=== PATIENT | male | born 1985 | race Caucasian/White ===

== ENCOUNTER 2023-07-02 15:30 | Emergency (ER) | payer OTHER, SELFPAY ==
[2023-07-02 15:43] VITALS: BP 142/100; PULSE 90; RESP 20; TEMP 36.7; O2SAT 100; BMI 20.8
--- NOTE | 2023-07-02 16:01 | ED.ABDPAIN1 ---
HPI - Abdominal Pain General Chief Complaint: Abdominal Pain Stated Complaint: Abdominal Pain, Blood in Stool Time Seen by Provider: 07/02/23 15:56 Source: patient Mode of arrival: walk-in Limitations: no limitations History of Present Illness HPI narrative: patient with several days of lower abdominal pain. He developed diarrhea yesterday and today saw blood in stool - but I have been wiping a lot the last 2 days . No fever, chills, flank pain or chest pain. No change in symptoms with eating or drinking. No skin rash. No prior history of similar. Related Data Previous Rx's Medication Instructions Recorded ciprofloxacin HCl 500 mg tablet 500 mg PO BID #14 tabs 07/02/23 (Cipro) ketorolac 10 mg tablet 10 mg PO Q8H PRN pain #14 tabs 07/02/23 metronidazole 500 mg tablet 500 mg PO Q8H 7 days #21 tabs 07/02/23 ondansetron 4 mg disintegrating 4 mg PO Q6H PRN nausea and 07/02/23 tablet vomiting #14 tabs Allergies Allergy/AdvReac Type Severity Reaction Status Date / Time iodine Allergy Severe Swelling Verified 07/02/23 15:49 of Lip/Tongue/Throat strawberries Allergy Intermediate Swelling Uncoded 07/02/23 15:49 of Lip/Tongue/Throat PFSH PFSH Social History Smoking status: Current every day smoker Exam Narrative Exam Narrative: Nurses notes and vital signs reviewed and patient is not hypoxic. afebrile General: Well-appearing and in no apparent distress. Skin: Warm, dry, no pallor noted. Head: Normocephalic, atraumatic. ENT: Oral mucosa is moist Cardiovascular: Regular Rate and Rhythm without murmur, gallop or rub. Respiratory: No accessory muscle use or respiratory distress. Lungs are clear to auscultation, no wheezing, rales or rhonchi Back: Left CVA tenderness Musculoskeletal: normal ROM GI: Abdomen is soft, non-distended. Normal bowel sounds. No masses appreciated. Bilateral lower abdominal tenderness to palpation. No rebound, guarding, or rigidity noted. Neurological: A&O x4. No cranial nerve dysfunction observed. No truncal ataxia. Moves all extremities. Sensation intact. Psychiatric: Cooperative and interactive. Normal mood and affect. Constitutional Vital Signs, click to edit/add: Last Vital Signs Temp 98.1 F 07/02/23 15:43 Pulse 90 07/02/23 15:43 Resp 20 07/02/23 15:43 BP 142/100 H 07/02/23 15:43 Pulse Ox 100 07/02/23 15:43 O2 Del Method Room Air 07/02/23 15:43 Course Vital Signs Vital signs: Vital Signs Temperature 98.1 F 07/02/23 15:43 Pulse Rate 90 07/02/23 15:43 Respiratory Rate 20 07/02/23 15:43 Blood Pressure 142/100 H 07/02/23 15:43 Pulse Oximetry 100 07/02/23 15:43 Oxygen Delivery Method Room Air 07/02/23 15:43 Temperature 98.1 F 07/02/23 15:43 Pulse Rate 90 07/02/23 15:43 Respiratory Rate 07/02/23 15:43 Blood Pressure 142/100 H 07/02/23 15:43 Pulse Oximetry 100 07/02/23 15:43 Oxygen Delivery Method Room Air 07/02/23 15:43 MDM - Abdominal Pain MDM Narrative Medical decision making narrative: Peripheral IV established blood drawn and sent for testing. He was ordered to undergo CT scanning of the abdomen pelvis. I also asked him to give us a stool sample so we could send for GI panel if it is diarrheal. Patient ordered to receive normal saline IV fluid, IV Zofran and IV morphine. Normal WBC. Normal CMP and Lipase. CT, per radiologist, shows proctosigmoiditis. Patient will be started on Cipro and Flagyl and discharged home with zofran and toradol prescriptions. He and I discussed results, diagnosis and plan for treatment. ED return if he worsens. He was given info for new PCPs in the area taking patients. Lab Data Attestation: I reviewed the patient's lab results. Labs: Lab Results 07/02/23 07/02/23 Range/Units 16:10 16:29 WBC 7.9 (4.0-11.0) 10^3/uL RBC 5.05 (4.70-6.10) 10^6/uL Hgb 15.5 (14.0-18.0) g/dL Hct 43.2 (42.0-54.0) % MCV 85.5 (80.0-94.0) fL MCH 30.7 (25.9-34.0) pg MCHC 35.9 H (29.9-35.2) g/dL RDW 11.9 (11.0-15.0) % Plt Count 288 (150-450) 10^3/uL MPV 9.5 (9.5-13.5) fL Neut % (Auto) 49.9 (43.0-75.0) % Lymph % (Auto) 41.4 (20.5-60.0) % [place] % (Auto) 6.2 (1.7-12.0) % Eos % (Auto) 1.6 (0.9-7.0) % Baso % (Auto) 0.8 (0.2-2.0) % Neut # (Auto) 3.9 (1.4-6.5) 10^3/uL Lymph # (Auto) 3.3 (1.2-3.8) 10^3/uL [place] # (Auto) 0.5 (0.3-0.8) 10^3/uL Eos # (Auto) 0.1 (0.0-0.7) 10^3/uL Baso # (Auto) 0.1 (0.0-0.1) 10^3/uL Abs Immat Gran (auto) 0.01 (0.00-0.03) 10^3/uL Imm/Tot Granulo (auto) 0.1 (0.0-0.5) % Sodium 138 (136-145) mmol/L Potassium 4.4 (3.5-5.1) mmol/L Chloride 103 (98-107) mmol/L Carbon Dioxide 30.8 (21.0-32.0) mmol/L Anion Gap 8.6 BUN 8.0 (7.0-18.0) mg/dL Creatinine 0.94 (0.70-1.30) mg/dL Est GFR ( Amer) >60 (>=60) Est GFR (Non-Af Amer) >60 (>=60) BUN/Creatinine Ratio 8.5 Glucose 98 (74-106) mg/dL Calcium 9.6 (8.5-10.1) mg/dL Total Bilirubin 0.6 (0.2-1.0) mg/dL AST 50 H (15-37) U/L ALT 128 H (16-63) U/L Alkaline Phosphatase 78 (46-116) U/L Total Protein 9.0 H (6.4-8.2) g/dL Albumin 4.5 (3.4-5.0) g/dL Globulin 4.5 g/dL Albumin/Globulin Ratio 1.0 Lipase 41.0 (16.0-77.0) U/L Imaging Data CT scan - abdomen: Radiologist's impression: ITS Impressions Abdomen/Pelvis CT 07/02/23 16:27 IMPRESSION: Suspect mild proctosigmoiditis. Bladder distention. Colonic diverticulosis without diverticulitis. Normal appendix. No renal/urinary tract calculi. Electronically authenticated by: MAZIN NIX Date: 07/02/2023 17:25 Discharge Plan Discharge Chief Complaint: Abdominal Pain Clinical Impression: Proctosigmoiditis Patient Disposition: Home, Self-Care Time of Disposition Decision: 17:48 Prescriptions / Home Meds: New metronidazole 500 mg tablet 500 mg PO Q8H 7 Days Qty: 21 0RF ciprofloxacin HCl [Cipro] 500 mg tablet 500 mg PO BID Qty: 14 0RF ondansetron 4 mg tablet,disintegrating 4 mg PO Q6H PRN (Reason: nausea and vomiting) Qty: 14 0RF ketorolac 10 mg tablet 10 mg PO Q8H PRN (Reason: pain) Qty: 14 0RF Instructions: Proctitis (ED), Colitis (ED) Stand Alone Forms: Portal Instructions Referrals: Physician,Non-Staff, MD [Primary Care Provider] - 1 week
[2023-07-02] MEDS: ONDANSETRON PF 4 MG/2 ML VIAL IV (16:20)
[2023-07-02] MEDS: 0.9 % SODIUM CHLORIDE 1,000 ML 999 ML IV (16:20)
[2023-07-02 16:23] LABS: Basophils Absolute Auto 0.1 10^3/uL (0.0-0.1); Basophils Percent Auto 0.8 % (0.2-2.0); Eosinophils Absolute Auto 0.1 10^3/uL (0.0-0.7); Eosinophils Percent Auto 1.6 % (0.9-7.0); Hematocrit 43.2 % (42.0-54.0); Hemoglobin 15.5 g/dL (14.0-18.0); Immature Granulocytes Abs Auto 0.01 10^3/uL (0.00-0.03); Immature Granulocytes Pct Auto 0.1 % (0.0-0.5); Lymphocytes Absolute Auto 3.3 10^3/uL (1.2-3.8); Lymphocytes Percent Auto 41.4 % (20.5-60.0); Mean Corpuscular HGB Conc 35.9 g/dL (29.9-35.2); Mean Corpuscular Hemoglobin 30.7 pg (25.9-34.0); Mean Corpuscular Volume 85.5 fL (80.0-94.0); Mean Platelet Volume 9.5 fL (9.5-13.5); Monocytes Absolute Auto 0.5 10^3/uL (0.3-0.8); Monocytes Percent Auto 6.2 % (1.7-12.0); Neutrophils Absolute Auto 3.9 10^3/uL (1.4-6.5); Neutrophils Percent Auto 49.9 % (43.0-75.0); Platelet Count 288 10^3/uL (150-450); Red Blood Count 5.05 10^6/uL (4.70-6.10); Red Cell Distribution Width 11.9 % (11.0-15.0); White Blood Count 7.9 10^3/uL (4.0-11.0)
--- NOTE | 2023-07-02 16:27 | CT_ITS ---
[place] [id number] Patient Name: MERISSA BAEZ MRN: [id number] date: 1985 Sex: M Assigned Patient Location: ER Current Patient Location: ER Accession/Order Number: [id number] Exam Date: 07/02/2023 16:57 Report Date: 07/02/2023 17:25 At the request of: EVA STAPLES Procedure: CT abdomen pelvis wo con EXAMINATION: CT abdomen pelvis wo con, 07/02/2023 1:57 PM PST HISTORY: lower abdominal pain COMPARISON: None. TECHNIQUE: CT scan of the abdomen and pelvis was performed without IV contrast. CT dose reduction technique was used, including Automated Exposure Control. FINDINGS: Lung: No significant finding. Liver: No significant finding. Gallbladder: No significant finding. Spleen: No significant finding. Pancreas: No significant finding. Adrenal glands: No significant finding. Kidneys, ureters and bladder: Bladder distention. No renal/urinary tract calculi. No hydronephrosis. Bowel: Colonic diverticulosis without diverticulitis. Normal appendix. No evidence of bowel obstruction. Mild thickening of the rectum and sigmoid. Peritoneum/retroperitoneum: No significant finding. Lymph nodes: No significant finding. Vessels: No significant finding. Body wall: No significant finding. Reproductive: No significant finding. Bones: No significant finding. CT/CT abdomen pelvis wo con IMPRESSION: Suspect mild proctosigmoiditis. Bladder distention. Colonic diverticulosis without diverticulitis. Normal appendix. No renal/urinary tract calculi. Electronically authenticated by: MAZIN NIX Date: 07/02/2023 17:25
[2023-07-02] MEDS: KETOROLAC TROMETHAMINE 30 MG/ML VIAL IVP (16:41)
[2023-07-02 16:49] LABS: Alanine Aminotransferase 128 U/L (16-63); Albumin Level 4.5 g/dL (3.4-5.0); Alkaline Phosphatase 78 U/L (46-116); Anion Gap 8.6; Aspartate Amino Transferase 50 U/L (15-37); BUN Creatinine Ratio 8.5; Bilirubin Total 0.6 mg/dL (0.2-1.0); Calcium 9.6 mg/dL (8.5-10.1); Carbon Dioxide 30.8 mmol/L (21.0-32.0); Chloride 103 mmol/L (98-107); Estimated GFR (African America >60 (>=60); Estimated GFR (Non-African Ame >60 (>=60); Globulin 4.5 g/dL; Glucose 98 mg/dL (74-106); Potassium 4.4 mmol/L (3.5-5.1); Sodium 138 mmol/L (136-145)
== END 2023-07-02 18:16 | disposition home or self-care (01) ==
PROVIDERS: Emergency Provider Emergency Medicine
DX: K63.89 Other specified diseases of intestine (principal); F17.210 Nicotine dependence, cigarettes, uncomplicated
CPT/HCPCS: 36415; 74176; 80053; 83690; 85025; 87507; 96374; 96375; 99285; J1885; J2405

== ENCOUNTER 2023-07-15 14:49 | Emergency (ER) | payer OTHER, SELFPAY ==
[2023-07-15 14:52] VITALS: BP 135/75; PULSE 85; RESP 20; TEMP 36.8; O2SAT 98; BMI 28.3
--- NOTE | 2023-07-15 15:08 | CT_ITS ---
The [address] [address] Patient Name: MERISSA BAEZ MRN: [id number] date: 1985 Sex: M Assigned Patient Location: ER Current Patient Location: ER Accession/Order Number: [id number] Exam Date: 07/15/2023 16:00 Report Date: 07/15/2023 16:20 At the request of: ADAMARIS ESTRADA Procedure: CT abdomen pelvis wo con EXAM: CT abdomen pelvis wo con HISTORY: Pain, recent proctitis COMPARISON: 07/02/2023 TECHNIQUE: Axial CT images were obtained of the abdomen and pelvis without intravenous contrast. Multiplanar reconstructions were performed. ABDOMEN/PELVIS FINDINGS: Lower Chest: Unremarkable. Liver: Normal nonenhanced appearance and contour. Biliary/Gallbladder: Unremarkable. Pancreas: Unremarkable. Spleen: Unremarkable. Adrenal Glands: Unremarkable. Kidneys: Unremarkable. Gastrointestinal/Peritoneum: No acute abnormality. Mild colonic diverticulosis is present. The appendix is unremarkable. No free air or free fluid. Vascular: Unremarkable. Lymph Nodes: No enlarged lymph nodes by CT size criteria. Pelvic Organs: Unremarkable. Bladder: The urinary bladder is moderately distended. Bones: No acute osseous abnormality. Soft tissues: Unremarkable. CT/CT abdomen pelvis wo con IMPRESSION: 1. No acute abnormality of the abdomen and pelvis. 2. Mild colonic diverticulosis without evidence of colonic inflammatory changes. 3. Moderately distended urinary bladder. Correlation with urine output may be clinically indicated. Electronically authenticated by: FILIBERTO EUGENE Date: 07/15/2023 16:20
--- NOTE | 2023-07-15 15:10 | ED_ITS ---
HPI - Abdominal Pain General Chief Complaint: Abdominal Pain Stated Complaint: ABD PAIN RETURN PATIENT BLOOD IN STOOL Time Seen by Provider: 07/15/23 14:58 Source: patient Mode of arrival: walk-in Limitations: no limitations History of Present Illness HPI narrative: 38-year-old male presents to the emergency department for abdominal pain. He states he had been diagnosed with proctitis a few weeks ago and he finished his antibiotics. He was getting better but now its gotten a bit worse. Sometimes when he has a bowel movement he passes some blood. He has not had a fever. He has been vomiting twice a day. The pain is moderate. Related Data Previous Rx's Medication Instructions Recorded ciprofloxacin HCl 500 mg tablet 500 mg PO BID #14 tabs 07/02/23 (Cipro) ketorolac 10 mg tablet 10 mg PO Q8H PRN pain #14 tabs 07/02/23 metronidazole 500 mg tablet 500 mg PO Q8H 7 days #21 tabs 07/02/23 ondansetron 4 mg disintegrating 4 mg PO Q6H PRN nausea and 07/02/23 tablet vomiting #14 tabs dicyclomine 10 mg capsule 10 mg PO QID PRN abdominal pain 07/15/23 #20 caps Allergies Allergy/AdvReac Type Severity Reaction Status Date / Time iodine Allergy Severe Swelling Verified 07/02/23 15:49 of Lip/Tongue/Throat strawberries Allergy Intermediate Swelling Uncoded 07/02/23 15:49 of Lip/Tongue/Throat Review of Systems ROS Narrative A ten point review of systems is negative except as noted above. PFSH PFSH Social History Smoking status: Heavy tobacco smoker Exam Narrative Exam Narrative: Nurses note and vital signs reviewed and patient is not hypoxic. General: The patient appears well and in no apparent distress. Patient is resting comfortably on cart. Skin: Warm, dry, no pallor noted. There is no rash noted. Head: Normocephalic, atraumatic Eye: Normal conjunctiva, no drainage Ears, Nose, Mouth, and Throat: oral mucosa is moist. Nares patent. Cardiovascular: Regular Rate and Rhythm Respiratory: Patient is in no distress, no accessory muscle use, lungs are clear to auscultation, no wheezing, rales or rhonchi Back: non-tender GI: Minimal diffuse tenderness without distention rebound guarding or mass Musculoskeletal: The patient has no evidence of calf tenderness, no pitting edema, symmetrical pulses noted bilaterally Neurological: A&O, normal speech Psychiatric: Cooperative Constitutional Vital Signs, click to edit/add: Last Vital Signs Temp 98.3 F 07/15/23 14:52 Pulse 85 07/15/23 14:52 Resp 20 07/15/23 14:52 BP 135/75 07/15/23 14:52 Pulse Ox 98 07/15/23 14:52 O2 Del Method Room Air 07/15/23 14:52 Course Vital Signs Vital signs: Vital Signs Temperature 98.3 F 07/15/23 14:52 Pulse Rate 85 07/15/23 14:52 Respiratory Rate 20 07/15/23 14:52 Blood Pressure 135/75 07/15/23 14:52 Pulse Oximetry 98 07/15/23 14:52 Oxygen Delivery Method Room Air 07/15/23 14:52 Temperature 98.3 F 07/15/23 14:52 Pulse Rate 85 07/15/23 14:52 Respiratory Rate 20 07/15/23 14:52 Blood Pressure 135/75 07/15/23 14:52 Pulse Oximetry 98 07/15/23 14:52 Oxygen Delivery Method Room Air 07/15/23 14:52 MDM - Abdominal Pain MDM Narrative Medical decision making narrative: His workup is negative including CAT scan. The proctosigmoiditis seems to have resolved. He does not require antibiotics. He was prescribed Bentyl and referred to PCP. Treatment diagnosis and follow-up were discussed with the oxana ent. He has had no difficulty with urination. Differential Diagnosis Differential diagnosis: Likely abdominal pain, constipation, diverticulitis, gastroenteritis and small bowel obstruction Lab Data Attestation: I reviewed the patient's lab results. Labs: Lab Results 07/15/23 07/15/23 Range/Units 15:20 15:28 WBC 8.3 (4.0-11.0) 10^3/uL RBC 4.54 L (4.70-6.10) 10^6/uL Hgb 14.0 (14.0-18.0) g/dL Hct 39.5 L (42.0-54.0) % MCV 87.0 (80.0-94.0) fL MCH 30.8 (25.9-34.0) pg MCHC 35.4 H (29.9-35.2) g/dL RDW 12.1 (11.0-15.0) % Plt Count 262 (150-450) 10^3/uL MPV 9.4 L (9.5-13.5) fL Neut % (Auto) 57.3 (43.0-75.0) % Lymph % (Auto) 33.4 (20.5-60.0) % [place] % (Auto) 7.4 (1.7-12.0) % Eos % (Auto) 1.2 (0.9-7.0) % Baso % (Auto) 0.6 (0.2-2.0) % Neut # (Auto) 4.7 (1.4-6.5) 10^3/uL Lymph # (Auto) 2.8 (1.2-3.8) 10^3/uL [place] # (Auto) 0.6 (0.3-0.8) 10^3/uL Eos # (Auto) 0.1 (0.0-0.7) 10^3/uL Baso # (Auto) 0.1 (0.0-0.1) 10^3/uL Abs Immat Gran (auto) 0.01 (0.00-0.03) 10^3/uL Imm/Tot Granulo (auto) 0.1 (0.0-0.5) % Sodium 137 (136-145) mmol/L Potassium 3.6 (3.5-5.1) mmol/L Chloride 103 (98-107) mmol/L Carbon Dioxide 27.9 (21.0-32.0) mmol/L Anion Gap 9.7 BUN 13.0 (7.0-18.0) mg/dL Creatinine 0.89 (0.70-1.30) mg/dL Est GFR ( Amer) >60 (>=60) Est GFR (Non-Af Amer) >60 (>=60) BUN/Creatinine Ratio 14.6 Glucose 117 H (74-106) mg/dL Calcium 8.7 (8.5-10.1) mg/dL Total Bilirubin 0.6 (0.2-1.0) mg/dL Direct Bilirubin 0.2 (0.0-0.2) mg/dL AST 148 H (15-37) U/L ALT 97 H (16-63) U/L Alkaline Phosphatase 75 (46-116) U/L Total Protein 7.7 (6.4-8.2) g/dL Albumin 3.9 (3.4-5.0) g/dL Globulin 3.8 g/dL Albumin/Globulin Ratio 1.0 Amylase 48 (25-115) U/L Lipase 50.0 (16.0-77.0) U/L Urine Color Lt. yellow (YELLOW) Urine Clarity Clear (CLEAR) Urine pH 6.5 (5.0-9.0) Ur Specific [place] <=1.005 A (1.005-1.025) Urine Protein Negative (NEG/TRACE) mg/dL Urine Glucose (UA) Negative (NEGATIVE) mg/dL Urine Ketones Negative (NEGATIVE) mg/dL Urine Occult Blood Negative (NEGATIVE) Urine Nitrite Negative (NEGATIVE) Urine Bilirubin Negative (NEGATIVE) Urine Urobilinogen 0.2 (0.2-1.0) EU/dL Ur Leukocyte Esterase Negative (NEGATIVE) Urine RBC 0-2 (0-2) #/HPF Urine WBC None seen (NONE SEEN) #/HPF Ur Squamous Epith Cells None seen (NONE/RARE) #/LPF Urine Crystals None seen (None Seen) #/HPF Urine Bacteria None seen (NONE SEEN) #/HPF Urine Casts None seen (NONE SEEN) #/LPF Urine Mucus None seen (NONE SEEN) Imaging Data CT scan - abdomen: Radiologist's impression: ITS Impressions Abdomen/Pelvis CT 07/15/23 15:08 IMPRESSION: 1. No acute abnormality of the abdomen and pelvis. 2. Mild colonic diverticulosis without evidence of colonic inflammatory changes. 3. Moderately distended urinary bladder. Correlation with urine output may be clinically indicated. Electronically authenticated by: FILIBERTO EUGENE Date: 07/15/2023 16:20 Discharge Plan Discharge Chief Complaint: Abdominal Pain Clinical Impression: Abdominal pain Patient Disposition: Home, Self-Care Time of Disposition Decision: 16:30 Condition: Good Mode of Transportation: Private Vehicle Prescriptions / Home Meds: New dicyclomine 10 mg capsule 10 mg PO QID PRN (Reason: abdominal pain) Qty: 20 0RF No Action metronidazole 500 mg tablet 500 mg PO Q8H 7 Days Qty: 21 0RF ciprofloxacin HCl [Cipro] 500 mg tablet 500 mg PO BID Qty: 14 0RF ondansetron 4 mg tablet,disintegrating 4 mg PO Q6H PRN (Reason: nausea and vomiting) Qty: 14 0RF ketorolac 10 mg tablet 10 mg PO Q8H PRN (Reason: pain) Qty: 14 0RF Instructions: Abdominal Pain (ED) Additional Instructions: Follow-up with PCP, list provided Stand Alone Forms: Portal Instructions Referrals: Physician,Non-Staff, MD [Primary Care Provider] - 1 week
--- OUTSIDE RECORDS SUMMARY | 2023-07-15 15:11 | XMS_ITS | CCD ---
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 Name Role Phone MANISH MORILLO Admitting Unavailable ILIA, MANISH Attending Unavailable ROSS, MANISH Consulting Unavailable REQUEST, NONE LISTED Primary Care Unavailable STRUS, RANDELL Consulting Unavailable STRUS, RANDELL Admitting Unavailable STRUS, RANDELL Attending Unavailable REINECK, CASSIE Mcnamara Admitting Unavailable REINECK, CASSIE Mcnamara Attending Unavailable ILIA, MANISH Primary Care Unavailable KIRFER, DORCAS Consulting Unavailable ILIA, MANISH Admitting Unavailable ROSS, MANISH Attending Unavailable ROSS, MANISH Consulting Unavailable ROSS, MANISH Primary Care Unavailable DIVYA, NELDA Admitting Unavailable DIVYA, NELDA Attending Unavailable DIVYA, NELDA Consulting Unavailable ROSS, MANISH Primary Care Unavailable HAY, EVA Admitting Unavailable HAY, EVA Attending Unavailable NILO CARRANZA Consulting Unavailable ROSS, MANISH Primary Care Unavailable HAY, EVA Admitting Unavailable HAY, EVA Attending Unavailable KIRFER, DORCAS Consulting Unavailable Allergies Allergy Classification Reported Allergen(s) Allergy Type Date of Onset Reaction(s) Facility (1 source) Iodine Drug Allergy 01-30-2014 [facility] Repository Problems Active Problems Problem Classification Problem Date Documented Date Episodic/Chronic Allergic reactions (1 source) Dermatitis, unspecified; Translations: [DERMATITIS UNSPECIFIED] Onset: 08-04-2019 Episodic Essential hypertension (1 source) Essential (primary) hypertension; Translations: [ESSENTIAL PRIMARY HYPERTENSION] Onset: 11-14-2018 Chronic External cause codes: Natural/environment (1 source) Bitten by turtle, initial encounter; Translations: [BITTEN BY TURTLE INITIAL ENCOUNTER] Onset: 08-04-2019 External cause codes: Struck by; against (1 source) Striking against or struck by other objects, initial encounter; Translations: [STRIKING AGNST/STRUCK OTH OBJ INIT] Onset: 11-14-2018 Immunizations and screening for infectious disease (2 sources) Encounter for screening for infections with a predominantly sexual mode of transmission; Translations: [Encounter for immunization] Onset: 12-01-2018 Episodic Open wounds of extremities (4 sources) Open bite of right hand, initial encounter; Translations: [OPEN BITE RIGHT HAND INITIAL ENC] Onset: 07-31-2019 Episodic Other ear and sense organ disorders (3 sources) Otalgia, left ear; Translations: [OTALGIA LEFT EAR] Onset: 09-03-2019 Episodic Other inflammatory condition of skin (4 sources) Pruritus, unspecified; Translations: [PRURITUS UNSPECIFIED] Onset: 08-02-2019 Episodic Otitis media and related conditions (1 source) Otitis media, unspecified, left ear; Translations: [OTITIS MEDIA UNSPECIFIED LEFT EAR] Onset: 09-07-2019 Episodic Skin and subcutaneous tissue infections (1 source) Cellulitis of right upper limb; Translations: [CELLULITIS OF RIGHT UPPER LIMB] Onset: 08-04-2019 Episodic Substance-related disorders (1 source) Nicotine dependence, cigarettes, uncomplicated; Translations: [NICOTINE DEPEND CIGARETTES UNCOMP] Onset: 09-07-2019 Chronic Superficial injury; contusion (4 sources) Injury of conjunctiva and corneal abrasion without foreign body, left eye, initial encounter; Translations: [Abrasion of left hand, initial encounter] Onset: 11-14-2018 Episodic Unclassified (3 sources) Other specified disorders of eye and adnexa; Translations: [OTHER SPEC DISORDERS EYE AND ADNEXA] Onset: 11-15-2018 Past or Other Problems Problem Classification Problem Date Documented Da te Episodic/Chronic Hepatitis (4 sources) Unspecified viral hepatitis C without hepatic coma; Translations: [UNS VIRAL HEPATITIS C W/O HEP COMA] Onset: 10-28-2018 Episodic Inflammation; infection of eye (except that caused by tuberculosis or sexually transmitteddisease) (1 source) Unspecified keratitis; Translations: [UNSPECIFIED KERATITIS] Onset: 11-18-2018 Episodic Other eye disorders (3 sources) Ocular pain, left eye; Translations: [OCULAR PAIN LEFT EYE] Onset: 11-12-2018 Episodic Results Test Name Value Interpretation Reference Range Facility Complete Blood Count Auto Di ffon 05-01-2019 Basophils (Bld) [#/Vol] 0.1 10*3/uL Normal 0.0-0.2 [facility] Comment on above: Result Comment: PERF ORMED BY: [place] [address] PATHOLOGIST TUNNEL KILN OPERATOR LUPIS EDMOND M.D. Performed By: #### U RDS, PT, ETOH, CMP, CBC #### [address] #### HIVRNAPCR, HBSAG, HEP C, HBCAB, FIBROSURE, HCV RNAQNT, HCV JORGE #### [facility] , Basophils/100 WBC (Bld) 0.7 % Normal . [facility] Comment on above: Performed By: #### U RDS, PT, ETOH, CMP, CBC #### [address] #### HIVRNAPCR, HBSAG, HEP C, HBCAB, FIBROSURE, HCV RNAQNT, HCV JORGE #### [facility] , Eosinophils (Bld) [#/Vol] 0.3 10*3/uL Normal 0.0-0.45 [facility] Comment on above: Performed By: #### U RDS, PT, ETOH, CMP, CBC #### [address] #### HIVRNAPCR, HBSAG, HEP C, HBCAB, FIBROSURE, HCV RNAQNT, HCV JORGE #### [facility] , Eosinophils/100 WBC (Bld) 4.2 % Normal . [facility] Comment on above: Performed By: #### U RDS, PT, ETOH, CMP, CBC #### [address] #### HIVRNAPCR, HBSAG, HEP C, HBCAB, FIBROSURE, HCV RNAQNT, HCV JORGE #### [facility] , Erythrocyte distribution width (RBC) [Ratio] 12.5 % Normal 12.0-14.8 [facility] Comment on above: Performed By: #### U RDS, PT, ETOH, CMP, CBC #### [facility] [address] #### HIVRNAPCR, HBSAG, HEP C, HBCAB, FIBROSURE, HCV RNAQNT, HCV JORGE #### [facility] , Hematocrit (Bld) [Volume fraction] 46.9 % Normal 38.8-50.0 [facility] Comment on above: Performed By: #### U RDS, PT, ETOH, CMP, CBC #### [address] #### HIVRNAPCR, HBSAG, HEP C, HBCAB, FIBROSURE, HCV RNAQNT, HCV JORGE #### [facility] , Hemoglobin (Bld) [Mass/Vol] 16.4 g/dL Normal 13.0-17.0 [facility] Comment on above: Performed By: #### U RDS, PT, ETOH, CMP, CBC #### [address] #### HIVRNAPCR, HBSAG, HEP C, HBCAB, FIBROSURE, HCV RNAQNT, HCV JORGE #### [facility] , Lymphocytes (Bld) [#/Vol] 2.3 10*3/uL Normal 1.00-4.8 [facility] Comment on above: Performed By: #### U RDS, PT, ETOH, CMP, CBC #### [address] #### HIVRNAPCR, HBSAG, HEP C, HBCAB, FIBROSURE, HCV RNAQNT, HCV JORGE #### [facility] , Lymphocytes/100 WBC (Bld) 31.4 % Normal . [facility] Comment on above: Performed By: #### U RDS, PT, ETOH, CMP, CBC #### [place] [address] [place] #### HIVRNAPCR, HBSAG, HEP C, HBCAB, FIBROSURE, HCV RNAQNT, HCV JORGE #### [facility] , MCH (RBC) [Entitic mass] 34.9 g/dL Normal 32.5-35.6 [facility] Comment on above: Performed By: #### U RDS, PT, ETOH, CMP, CBC #### [address] #### HIVRNAPCR, HBSAG, HEP C, HBCAB, FIBROSURE, HCV RNAQNT, HCV JORGE #### [facility] , MCH (RBC) [Entitic mass] 31.2 pg Normal 27.5-35.2 [facility] Comment on above: Performed By: #### U RDS, PT, ETOH, CMP, CBC #### [address] #### HIVRNAPCR, HBSAG, HEP C, HBCAB, FIBROSURE, HCV RNAQNT, HCV JORGE #### [facility] , MCV (RBC) [Entitic vol] 89.6 fL Normal 83.5-101 [facility] Comment on above: Performed By: #### U RDS, PT, ETOH, CMP, CBC #### [address] #### HIVRNAPCR, HBSAG, HEP C, HBCAB, FIBROSURE, HCV RNAQNT, HCV JORGE #### [facility] , Monocytes (Bld) [#/Vol] 0.6 10*3/uL Normal 0.0-0.8 [facility] Comment on above: Performed By: #### U RDS, PT, ETOH, CMP, CBC #### [facility] [address] [place] [address] [place] #### HIVRNAPCR, HBSAG, HEP C, HBCAB, FIBROSURE, HCV RNAQNT, HCV JORGE #### [facility] , Monocytes/100 WBC (Bld) 8.0 % Normal . [facility] Comment on above: Performed By: #### U RDS, PT, ETOH, CMP, CBC #### [place] [address] [place] #### HIVRNAPCR, HBSAG, HEP C, HBCAB, FIBROSURE, HCV RNAQNT, HCV JORGE #### [facility] , Neutrophils (Bld) [#/Vol] 4.0 10*3/uL Normal 1.8-7.7 [facility] Comment on above: Performed By: #### U RDS, PT, ETOH, CMP, CBC #### [facility] [address] [place] [address] [place] #### HIVRNAPCR, HBSAG, HEP C, HBCAB, FIBROSURE, HCV RNAQNT, HCV JORGE #### [facility] , Neutrophils/100 WBC (Bld) 55.7 % Normal . [facility] Comment on above: Performed By: #### U RDS, PT, ETOH, CMP, CBC #### [address] #### HIVRNAPCR, HBSAG, HEP C, HBCAB, FIBROSURE, HCV RNAQNT, HCV JORGE #### [facility] , Nucleated RBC/100 WBC (Bld) [Ratio] 0.0 % Normal 0-0.5 [facility] Comment on above: Performed By: #### U RDS, PT, ETOH, CMP, CBC #### [facility] [address] [place] [address] #### HIVRNAPCR, HBSAG, HEP C, HBCAB, FIBROSURE, HCV RNAQNT, HCV JORGE #### [facility] , Platelet mean volume (Bld) [Entitic vol] 8.3 fL Normal 6.6-10.1 [facility] Comment on above: Performed By: #### U RDS, PT, ETOH, CMP, CBC #### [facility] [address] [place] [address] [place] #### HIVRNAPCR, HBSAG, HEP C, HBCAB, FIBROSURE, HCV RNAQNT, HCV JORGE #### [facility] , Platelets (Bld) [#/Vol] 273 10*3/uL Normal 150-450 [facility] Comment on above: Performed By: #### U RDS, PT, ETOH, CMP, CBC #### [facility] [address] [place] [address] #### HIVRNAPCR, HBSAG, HEP C, HBCAB, FIBROSURE, HCV RNAQNT, HCV JORGE #### [facility] , RBC (Bld) [#/Vol] 5.24 10*6/uL Normal 3.90-5.[address] [facility] Comment on above: Performed By: #### U RDS, PT, ETOH, CMP, CBC #### [facility] [address] [place] [address] #### HIVRNAPCR, HBSAG, HEP C, HBCAB, FIBROSURE, HCV RNAQNT, HCV JORGE #### [facility] , WBC (Bld) [#/Vol] 7.2 10*3/uL Normal 4.5-11.0 [facility] Comment on above: Performed By: #### U RDS, PT, ETOH, CMP, CBC #### [address] #### HIVRNAPCR, HBSAG, HEP C, HBCAB, FIBROSURE, HCV RNAQNT, HCV JORGE #### [facility] , Comprehensive Metabolic Pane michelle 05-01-2019 Albumin [Mass/Vol] 4.5 g/dL Normal 3.2-5.5 [facility] Comment on above: Performed By: #### U RDS, PT, ETOH, CMP, CBC #### [facility] [address] [place] [address] [place] #### HIVRNAPCR, HBSAG, HEP C, HBCAB, FIBROSURE, HCV RNAQNT, HCV JORGE #### [facility] , Albumin/Globulin [Mass ratio] 1.4 {ratio} Normal [facility] Comment on above: Performed By: #### U RDS, PT, ETOH, CMP, CBC #### [facility] [address] [place] [address] [place] #### HIVRNAPCR, HBSAG, HEP C, HBCAB, FIBROSURE, HCV RNAQNT, HCV JORGE #### [facility] , ALP [Catalytic activity/Vol] 66 U/L Normal 32-92 [facility] Comment on above: Result Comment: PERF ORMED BY: [place] [address] PATHOLOGIST TUNNEL KILN OPERATOR LUPIS EDMOND M.D. Performed By: #### U RDS, PT, ETOH, CMP, CBC #### [address] #### HIVRNAPCR, HBSAG, HEP C, HBCAB, FIBROSURE, HCV RNAQNT, HCV JORGE #### [facility] , ALT [Catalytic activity/Vol] 50 U/L Normal 10-60 [facility] Comment on above: Performed By: #### U RDS, PT, ETOH, CMP, CBC #### [facility] [address] [place] [address] #### HIVRNAPCR, HBSAG, HEP C, HBCAB, FIBROSURE, HCV RNAQNT, HCV JORGE #### [facility] , AST [Catalytic activity/Vol] 46 U/L High 10-42 [facility] Comment on above: Performed By: #### U RDS, PT, ETOH, CMP, CBC #### [address] #### HIVRNAPCR, HBSAG, HEP C, HBCAB, FIBROSURE, HCV RNAQNT, HCV JORGE #### [facility] , Bilirubin [Mass/Vol] 1.0 mg/dL Normal 0.3-1.2 [facility] Comment on above: Performed By: #### U RDS, PT, ETOH, CMP, CBC #### [address] #### HIVRNAPCR, HBSAG, HEP C, HBCAB, FIBROSURE, HCV RNAQNT, HCV JORGE #### [facility] , Calcium [Mass/Vol] 9.9 mg/dL Normal 8.2-10.2 [facility] Comment on above: Performed By: #### U RDS, PT, ETOH, CMP, CBC #### [facility] [address] [place] [address] [place] #### HIVRNAPCR, HBSAG, HEP C, HBCAB, FIBROSURE, HCV RNAQNT, HCV JORGE #### [facility] , Chloride [Moles/Vol] 105 mmol/L Normal 95-114 [facility] Comment on above: Performed By: #### U RDS, PT, ETOH, CMP, CBC #### [facility] [address] [place] [address] [place] #### HIVRNAPCR, HBSAG, HEP C, HBCAB, FIBROSURE, HCV RNAQNT, HCV JORGE #### [facility] , CO2 [Moles/Vol] 27.3 mmol/L Normal 22.0-30.0 [facility] Comment on above: Performed By: #### U RDS, PT, ETOH, CMP, CBC #### [facility] [address] [place] [address] [place] #### HIVRNAPCR, HBSAG, HEP C, HBCAB, FIBROSURE, HCV RNAQNT, HCV JORGE #### [facility] , Creatinine [Mass/Vol] 0.93 mg/dL Normal 0.64-1.27 [facility] Comment on above: Performed By: #### U RDS, PT, ETOH, CMP, CBC #### [facility] [address] [place] [address] [place] #### HIVRNAPCR, HBSAG, HEP C, HBCAB, FIBROSURE, HCV RNAQNT, HCV JORGE #### [facility] , Estimated GFR ( Francy > 60 Normal [facility] Comment on above: Result Comment: GFR estimated reference range: According to KDOQI guidelines, <60 ml/min/1.73m2 is sufficient to diagnose a patient with chronic kidney disease. Performed By: #### U RDS, PT, ETOH, CMP, CBC #### [place] [address] [place] #### HIVRNAPCR, HBSAG, HEP C, HBCAB, FIBROSURE, HCV RNAQNT, HCV JROGE #### [facility] , Estimated GFR (Non- Am > 60 Normal [facility] Comment on above: Performed By: #### U RDS, PT, ETOH, CMP, CBC #### [place] [address] [place] #### HIVRNAPCR, HBSAG, HEP C, HBCAB, FIBROSURE, HCV RNAQNT, HCV JORGE #### [facility] , Globulin (S) [Mass/Vol] 3.2 g/dL Normal [facility] Comment on above: Performed By: #### U RDS, PT, ETOH, CMP, CBC #### [address] #### HIVRNAPCR, HBSAG, HEP C, HBCAB, FIBROSURE, HCV RNAQNT, HCV JORGE #### [facility] , Glucose [Mass/Vol] 97 mg/dL Normal 70-100 [facility] Comment on above: Result Comment: [place] Glucose Reference Range is dependent on time and content of last meal. Glucose of more than 200 mg/dL in a nonstressed, ambulatory subject supports the diagnosis of Diabetes Mellitus. ADA recommended reference range Performed By: #### U RDS, PT, ETOH, CMP, CBC #### [place] [address] [place] #### HIVRNAPCR, HBSAG, HEP C, HBCAB, FIBROSURE, HCV RNAQNT, HCV JORGE #### [facility] , Potassium [Moles/Vol] 4.1 mmol/L Normal 3.5-5.1 [facility] Comment on above: Performed By: #### U RDS, PT, ETOH, CMP, CBC #### [place] [address] [place] #### HIVRNAPCR, HBSAG, HEP C, HBCAB, FIBROSURE, HCV RNAQNT, HCV JORGE #### [facility] , Protein [Mass/Vol] 7.7 g/dL Normal 6.1-7.9 [facility] Comment on above: Performed By: #### U RDS, PT, ETOH, CMP, CBC #### [address] #### HIVRNAPCR, HBSAG, HEP C, HBCAB, FIBROSURE, HCV RNAQNT, HCV JORGE #### [facility] , Sodium [Moles/Vol] 139 mmol/L Normal 136-146 [facility] Comment on above: Performed By: #### U RDS, PT, ETOH, CMP, CBC #### [address] #### HIVRNAPCR, HBSAG, HEP C, HBCAB, FIBROSURE, HCV RNAQNT, HCV JORGE #### [facility] , Urea nitrogen [Mass/Vol] 10 mg/dL Normal 9-23 [facility] Comment on above: Performed By: #### U RDS, PT, ETOH, CMP, CBC #### [facility] [address] [place] [address] [place] #### HIVRNAPCR, HBSAG, HEP C, HBCAB, FIBROSURE, HCV RNAQNT, HCV JORGE #### [facility] , Drug Screen,Urineon 05-01-20 19 Amphetamine Screen,Urine Negative Normal Negative [facility] Comment on above: Performed By: #### U RDS, PT, ETOH, CMP, CBC #### [place] [address] [place] #### HIVRNAPCR, HBSAG, HEP C, HBCAB, FIBROSURE, HCV RNAQNT, HCV JORGE #### [facility] , Barbiturate Screen,Urine Negative Normal Negative [facility] Comment on above: Performed By: #### U RDS, PT, ETOH, CMP, CBC #### [facility] [address] [place] [address] [place] #### HIVRNAPCR, HBSAG, HEP C, HBCAB, FIBROSURE, HCV RNAQNT, HCV JORGE #### [facility] , Benzodiazepines Screen,Urine Negative Normal Negative [facility] Comment on above: Performed By: #### U RDS, PT, ETOH, CMP, CBC #### [address] #### HIVRNAPCR, HBSAG, HEP C, HBCAB, FIBROSURE, HCV RNAQNT, HCV JORGE #### [facility] , Cannabinoid Screen,Urine Negative Normal Negative [facility] Comment on above: Result Comment: Thes e are unconfirmed results and should not be used for legal purposes. Drug Cut-Off Concentration: AMPH 1000 ng/mL CAITLYN 200 ng/mL CECY 200 ng/mL COCM 300 ng/mL OP 300 ng/mL PCP 25 ng/mL THC 20 ng/mL PERFORMED BY: [place] [address] PATHOLOGIST TUNNEL KILN OPERATOR LUPIS EDMOND M.D. Performed By: #### U RDS, PT, ETOH, CMP, CBC #### [address] #### HIVRNAPCR, HBSAG, HEP C, HBCAB, FIBROSURE, HCV RNAQNT, HCV JORGE #### [facility] , Cocaine Screen,Urine Negative Normal Negative [facility] Comment on above: Performed By: #### U RDS, PT, ETOH, CMP, CBC #### [address] #### HIVRNAPCR, HBSAG, HEP C, HBCAB, FIBROSURE, HCV RNAQNT, HCV JORGE #### [facility] , Opiate Screen,Urine Negative Normal Negative [facility] Comment on above: Performed By: #### U RDS, PT, ETOH, CMP, CBC #### [place] [address] [place] #### HIVRNAPCR, HBSAG, HEP C, HBCAB, FIBROSURE, HCV RNAQNT, HCV JORGE #### [facility] , Phencyclidine Screen,Urine Negative Normal Negative [facility] Comment on above: Performed By: #### U RDS, PT, ETOH, CMP, CBC #### [address] #### HIVRNAPCR, HBSAG, HEP C, HBCAB, FIBROSURE, HCV RNAQNT, HCV JORGE #### [facility] , Ethyl Alcohol Profileon 04-11 Ethanol [Mass/Vol] mg/dL Normal [facility] Comment on above: Performed By: #### U RDS, PT, ETOH, CMP, CBC #### [address] #### HIVRNAPCR, HBSAG, HEP C, HBCAB, FIBROSURE, HCV RNAQNT, HCV JORGE #### [facility] , Percent Ethanol Test not performed Normal [facility] Comment on above: Result Comment: PERF ORMED BY: [place] [address] PATHOLOGIST TUNNEL KILN OPERATOR LUPIS EDMOND M.D. Performed By: #### U RDS, PT, ETOH, CMP, CBC #### [address] #### HIVRNAPCR, HBSAG, HEP C, HBCAB, FIBROSURE, HCV RNAQNT, HCV JORGE #### [facility] , HIV RNA, Real Time PCRon HIV 1 RNA CYNTHIA+probe [#/Vol] {copies}/mL Normal . [facility] Comment on above: Result Comment: HIV- 1 RNA not detected The reportable range for this assay is 20 to 10,000,000 copies HIV-1 RNA/mL. Performed By: #### U RDS, PT, ETOH, CMP, CBC #### [address] #### HIVRNAPCR, HBSAG, HEP C, HBCAB, FIBROSURE, HCV RNAQNT, HCV JOREG #### [facility] , Log10 HIV-1 RNA Normal . [facility] Comment on above: Result Comment: Resu lt Units: [id number]/mL Unable to calculate result since non-numeric result obtained for component test. Performed at: [facility] [id number] Shaker Out: Bear Piedra MD, Phone: [phone] Performed By: #### U RDS, PT, ETOH, CMP, CBC #### [address] #### HIVRNAPCR, HBSAG, HEP C, HBCAB, FIBROSURE, HCV RNAQNT, HCV JORGE #### [facility] , Hep C Ab w Verificationon HCV AB >11.0 High 0.0-0.9 [facility] Comment on above: Performed By: #### U RDS, PT, ETOH, CMP, CBC #### [address] #### HIVRNAPCR, HBSAG, HEP C, HBCAB, FIBROSURE, HCV RNAQNT, HCV JORGE #### [facility] , HCV Ab Comment Normal . [facility] Comment on above: Result Comment: Stro ng reactive antibody screen (s/c ratio >10.9) is consistent with past or present HCV infection. Follow-up testing by HCV, Quantitative, Real time PCR (#[id number]) is recommended to determine viral load/diagnosis of current HCV infection. Performed By: #### U RDS, PT, ETOH, CMP, CBC #### [place] [address] [place] #### HIVRNAPCR, HBSAG, HEP C, HBCAB, FIBROSURE, HCV RNAQNT, HCV JORGE #### [facility] , Hep C Fibrosureon 05-01-2019 [id number] ns, QN 138 mg/dL Normal 110-276 [facility] Comment on above: Performed By: #### U RDS, PT, ETOH, CMP, CBC #### [address] #### HIVRNAPCR, HBSAG, HEP C, HBCAB, FIBROSURE, HCV RNAQNT, HCV JORGE #### [facility] , Alt (SGPT) P5P 56 High 0-55 [facility] Comment on above: Performed By: #### U RDS, PT, ETOH, CMP, CBC #### [facility] [address] [place] [address] #### HIVRNAPCR, HBSAG, HEP C, HBCAB, FIBROSURE, HCV RNAQNT, HCV JORGE #### [facility] , Apolipoprotein A-I [Mass/Vol] 106 mg/dL Normal 101-178 [facility] Comment on above: Performed By: #### U RDS, PT, ETOH, CMP, CBC #### [address] #### HIVRNAPCR, HBSAG, HEP C, HBCAB, FIBROSURE, HCV RNAQNT, HCV JORGE #### [facility] , Bilirubin [Mass/Vol] 0.5 mg/dL Normal 0.0-1.2 [facility] Comment on above: Performed By: #### U RDS, PT, ETOH, CMP, CBC #### [address] #### HIVRNAPCR, HBSAG, HEP C, HBCAB, FIBROSURE, HCV RNAQNT, HCV JORGE #### [facility] , Comment: Normal . [facility] Comment on above: Result Comment: This test was developed and its performance characteristics determined by [facility]. It has not been cleared or approved by the Food and Drug Administration. The FDA has determined that such clearance or approval is not necessary. For questions regarding this report please contact customer service at . Performed at: [address] [id number] Shaker Out: Bear Piedra MD, Phone: [phone] Performed By: #### U RDS, PT, ETOH, CMP, CBC #### [address] #### HIVRNAPCR, HBSAG, HEP C, HBCAB, FIBROSURE, HCV RNAQNT, HCV JORGE #### [facility] , Fibrosis Score 0.17 Normal 0.00-0.21 [facility] Comment on above: Performed By: #### U RDS, PT, ETOH, CMP, CBC #### [address] #### HIVRNAPCR, HBSAG, HEP C, HBCAB, FIBROSURE, HCV RNAQNT, HCV JORGE #### [facility] , Fibrosis Scoring: Normal . [facility] Comment on above: Result Comment: <0.2 1 = Stage F0 - No fibrosis 0.21 - 0.27 = Stage F0 - F1 0.27 - 0.31 = Stage F1 - Portal fibrosis 0.31 - 0.48 = Stage F1 - F2 0.48 - 0.58 = Stage F2 - Bridging fibrosis with few septa 0.58 - 0.72 = Stage F3 - Bridging fibrosis with many septa 0.72 - 0.74 = Stage F3 - F4 >0.74 = Stage F4 - Cirrhosis Performed By: #### U RDS, PT, ETOH, CMP, CBC #### [address] #### HIVRNAPCR, HBSAG, HEP C, HBCAB, FIBROSURE, HCV RNAQNT, HCV JORGE #### [facility] , Fibrosis Stage Normal . [facility] Comment on above: Result Comment: F0 - No fibrosis Performed By: #### U RDS, PT, ETOH, CMP, CBC #### [address] #### HIVRNAPCR, HBSAG, HEP C, HBCAB, FIBROSURE, HCV RNAQNT, HCV JORGE #### [facility] , Fibrosure Interpretation Normal . [facility] Comment on above: Result Comment: Ranjan titative results of 6 biochemical tests are analyzed using a computational algorithm to provide a quantitative surrogate marker (0.0-1.0) for liver fibrosis (METAVIR F0- F4) and for necroinflammatory activity (METAVIR A0-A3). Performed By: #### U RDS, PT, ETOH, CMP, CBC #### [address] #### HIVRNAPCR, HBSAG, HEP C, HBCAB, FIBROSURE, HCV RNAQNT, HCV JORGE #### [facility] , Fibrosure Limitations: Normal . [facility] Comment on above: Result Comment: The negative predictive value of a Fibrotest score <0.31 (absence of clinically significant fibrosis) was 85% when compared to liver biopsy in 1,270 HCV infected patients with a 38% prevalence of significant liver fibrosis (F2, 3 or 4). The positive predictive value of a Fibro-test score >0.48 (F2, 3, 4) was 61% in that same patient cohort. HCV FibroSURE is not recommended in patients with Gilbert Disease, acute hemolysis (e.g. HCV ribavirin therapy mediated hemolysis) acute hepa-titis of the liver, extra- hepatic cholestasis, transplant patients, and/or renal insufficiency patients. Any of these clinical situations may lead to inaccurate quantitative predictions of fibrosis and necroinflammatory activity in the liver. Performed By: #### U RDS, PT, ETOH, CMP, CBC #### [place] [address] [place] #### HIVRNAPCR, HBSAG, HEP C, HBCAB, FIBROSURE, HCV RNAQNT, HCV JORGE #### [facility] , Gamma glutamyl transferase [Catalytic activity/Vol] 17 U/L Normal 0-65 [facility] Comment on above: Performed By: #### U RDS, PT, ETOH, CMP, CBC #### [place] [address] [place] #### HIVRNAPCR, HBSAG, HEP C, HBCAB, FIBROSURE, HCV RNAQNT, HCV JORGE #### [facility] , Grade A0-A1 Normal . [facility] Comment on above: Performed By: #### U RDS, PT, ETOH, CMP, CBC #### [address] #### HIVRNAPCR, HBSAG, HEP C, HBCAB, FIBROSURE, HCV RNAQNT, HCV JORGE #### [facility] , Haptoglobin 47 mg/dL Normal 34-200 [facility] Comment on above: Result Comment: Ef fective May 25, 2019 Haptoglobin reference interval will be changing to: Age Male Female 0 - 6 months Not Estab. Not Estab. 7 months - 1 year 23 - 218 23 - 218 2 - 5 years 10 - 212 10 - 212 6 - 12 years 10 - 182 10 - 182 13 - 17 years 20 - 191 22 - 208 18 - 40 years 17 - 317 33 - 278 41 - 50 years 23 - 355 42 - 296 51 - 60 years 29 - 370 33 - 346 61 - 70 years 32 - 363 37 - 355 71 - 80 years 34 - 355 42 - 346 >80 years 38 - 329 41 - 333 Performed By: #### U RDS, PT, ETOH, CMP, CBC #### [address] #### HIVRNAPCR, HBSAG, HEP C, HBCAB, FIBROSURE, HCV RNAQNT, HCV JORGE #### [facility] , Score 0.29 High 0.00-0.17 [facility] Comment on above: Performed By: #### U RDS, PT, ETOH, CMP, CBC #### [facility] [address] [place] [address] #### HIVRNAPCR, HBSAG, HEP C, HBCAB, FIBROSURE, HCV RNAQNT, HCV JORGE #### [facility] , Scoring: Normal . [facility] Comment on above: Result Comment: <0.1 7 = Grade A0 - No Activity 0.17 - 0.29 = Grade A0 - A1 0.29 - 0.36 = Grade A1 - Minimal activity 0.36 - 0.52 = Grade A1 - A2 0.52 - 0.60 = Grade A2 - Moderate activity 0.60 - 0.62 = Grade A2 - A3 >0.62 = Grade A3 - Severe activity Performed By: #### U RDS, PT, ETOH, CMP, CBC #### [address] #### HIVRNAPCR, HBSAG, HEP C, HBCAB, FIBROSURE, HCV RNAQNT, HCV JORGE #### [facility] , Hep C Genotyping Non Reflexo n 05-01-2019 Hepatitis C Genotype 1a Normal . [facility] Comment on above: Performed By: #### U RDS, PT, ETOH, CMP, CBC #### [address] #### HIVRNAPCR, HBSAG, HEP C, HBCAB, FIBROSURE, HCV RNAQNT, HCV JORGE #### [facility] , Please Note: Normal . [facility] Comment on above: Result Comment: This test was developed and its performance characteristics determined by [facility]. It has not been cleared or approved by the U.S. Food and Drug Administration. The FDA has determined that such clearance or approval is not necessary. This test is used for clinical purposes. It should not be regarded as investigational or for research. Performed at: [address] [id number] Shaker Out: Bear Piedra MD, Phone: [phone] PERFORMED BY: [place] [address] PATHOLOGIST TUNNEL KIL[employer] OPERATOR LUPIS EDMOND M.D. Performed By: #### U RDS, PT, ETOH, CMP, CBC #### [address] #### HIVRNAPCR, HBSAG, HEP C, HBCAB, FIBROSURE, HCV RNAQNT, HCV JORGE #### [facility] , Hep C RT-PCR, Qnt (Non-Graph )on 05-01-2019 HCV Log10 5.975 Normal . [facility] Comment on above: Result Comment: Resu lt Units: log10 IU/mL Performed By: #### U RDS, PT, ETOH, CMP, CBC #### [address] [place] [address] [place] #### HIVRNAPCR, HBSAG, HEP C, HBCAB, FIBROSURE, HCV RNAQNT, HCV JORGE #### [facility] , Hepatitis C Quantitation [id number] Normal . [facility] Comment on above: Performed By: #### U RDS, PT, ETOH, CMP, CBC #### [address] #### HIVRNAPCR, HBSAG, HEP C, HBCAB, FIBROSURE, HCV RNAQNT, HCV JORGE #### [facility] , Test Information: Normal . [facility] Comment on above: Result Comment: The quantitative range of this assay is 15 IU/mL to 100 million IU/mL. Performed at: [facility] [address] [id number] Shaker Out: Bear Piedra MD, Phone: [phone] Performed By: #### U RDS, PT, ETOH, CMP, CBC #### [address] #### HIVRNAPCR, HBSAG, HEP C, HBCAB, FIBROSURE, HCV RNAQNT, HCV JORGE #### [facility] , Hepatitis B Core Antibodyon 05-01-2019 Hepatitis B Core Antibody Negative Normal Negative [facility] Comment on above: Result Comment: Perf ormed at: [facility] [address] [id number] Shaker Out: Jim Aguilar PhD, Phone: [phone] Performed By: #### U RDS, PT, ETOH, CMP, CBC #### [place] [address] [place] #### HIVRNAPCR, HBSAG, HEP C, HBCAB, FIBROSURE, HCV RNAQNT, HCV JORGE #### [facility] , Hepatitis B Surface Antigeno n 05-01-2019 HBsAg Screen Negative Normal Negative [facility] Comment on above: Performed By: #### U RDS, PT, ETOH, CMP, CBC #### [facility] [address] [place] [address] #### HIVRNAPCR, HBSAG, HEP C, HBCAB, FIBROSURE, HCV RNAQNT, HCV JORGE #### [facility] , Prothrombin Time INRon 05-01 INR Coag (Bld) [Relative time] 11.7 s Normal 9.0-12.9 [facility] Comment on above: Performed By: #### U RDS, PT, ETOH, CMP, CBC #### [facility] [address] [place] [address] #### HIVRNAPCR, HBSAG, HEP C, HBCAB, FIBROSURE, HCV RNAQNT, HCV JORGE #### [facility] , INR Coag (PPP) [Relative time] 1.1 {INR} Normal [facility] Comment on above: Result Comment: INR Therapeutic Range A) Pre- and Peroperative OAT started two weeks before surgery. NOT HIP SURGERY: 1.5 - 2.5 HIP SURGERY: 2 - 3 B) Primary and secondary prevention of venous THROMBOSIS: 2 - 3 C) Active venous thrombosis, pulmonary embolism and prevention of recurrent venous thrombosis: 2 - 3 D) Prevention of arterial thromboembolism including patients with mechanical heart valves: 3 - 4.5 PERFORMED BY: [place] [address] PATHOLOGIST TUNNEL KILN OPERATOR LUPIS EDMOND M.D. Performed By: #### U RDS, PT, ETOH, CMP, CBC #### [address] #### HIVRNAPCR, HBSAG, HEP C, HBCAB, FIBROSURE, HCV RNAQNT, HCV JORGE #### [facility] , HEPATITIS C VIRUS AB W/ REFL EX QUANTon 11-29-2018 HCV AB >11.0 Critically high 0.0-0.9 [facility] Comment on above: Result Comment: . Performed By: #### H CVPCRR #### [facility] [address] [address] Claudia Rahman HCV log10 4.964 log10 IU/mL Normal [facility] Comment on above: Performed By: #### H CVPCRR #### [facility] [address] [address] Claudia Rahman Hep C Quantitation 02100 IU/mL Normal [facility] Comment on above: Performed By: #### H CVPCRR #### [facility] [address] [place] [address] Claudiaalfredo Rahman Interpretation Comment Normal [facility] Comment on above: Result Comment: Posi tive HCV antibody screen with the presence of HCV RNA is consistent with active infection. Performed By: #### H CVPCRR #### [facility] [address] [place] [address] Claudia Rahman Test Information: Comment Normal [facility] Comment on above: Result Comment: The quantitative range of this assay is 15 IU/mL to 100 million IU/mL. Performed By: #### H CVPCRR #### [facility] [address] [place] [address] Claudia Rahman CHLAMYDIA/GONOCOCCUS CYNTHIA (SW AB/URINE/PAPon 11-28-2018 Chlamydia trachomatis, CYNTHIA Negative Normal Negative [facility] Comment on above: Performed By: #### C T/NGNA #### [facility] [address] [place] [address] Claudia Rahman Neisseria gonorrhoeae, CYNTHIA Negative Normal Negative [facility] Comment on above: Performed By: #### C T/NGNA #### [facility] [address] [place] [address] Claudia Rahman HEP B SURFACE ANTIGEN SCREEN on 11-28-2018 HBsAg Screen Negative Normal Negative [facility] Comment on above: Performed By: #### H BSANS #### [facility] [address] [place] [address] Claudia Rahman HIV 1 AND 2 WITH REFLEXon HIV Screen 4th Generation wRfx Non Reactive Normal Non Reactive [facility] Comment on above: Performed By: #### H IV12 #### [facility] [address] [place] [address] Claudia Rahman CBC AUTO DIFFon 11-27-2018 Basophils (Bld) [#/Vol] 0.1 103/ul Normal 0.0-0.1 [facility] Comment on above: Performed By: #### C BC #### [facility] [address] [place], [place] [address] Claudia Lacey Basophils/100 WBC (Bld) 0.6 % Normal 0.2-2.0 [facility] Comment on above: Performed By: #### C BC #### [facility] [address] [place] [address] Claudia Lacey Eosinophils (Bld) [#/Vol] 0.2 103/ul Normal 0.0-0.7 [facility] Comment on above: Performed By: #### C BC #### [facility] [address] [place] [address] Claudia Lacey Eosinophils/100 WBC (Bld) 2.6 % Normal 0.9-7.0 [facility] Comment on above: Performed By: #### C BC #### [facility] [address] [place] [address] Claudia Lacey Erythrocyte distribution width (RBC) [Ratio] 12.3 % Normal 11.0-15.0 [facility] Comment on above: Performed By: #### C BC #### [facility] [address] [place] [address] Claudia Lacey Hematocrit (Bld) [Volume fraction] 43.4 % Normal 42.0-54.0 [facility] Comment on above: Performed By: #### C BC #### [facility] [address] [place] [address] Claudia Lacey Hemoglobin (Bld) [Mass/Vol] 15.5 g/dL Normal 14.0-18.0 [facility] Comment on above: Performed By: #### C BC #### [facility] [address] [place] [address] Claudia Lacey IG # 0.02 10e3/ul Normal 0.00-0.03 [facility] Comment on above: Performed By: #### C BC #### [facility] [address] [place] [address] Claudia Lacey IG % 0.3 % Normal 0.0-0.5 [facility] Comment on above: Performed By: #### C BC #### [facility] [address] [place], [place] [address] Claudia Lacey Lymphocytes (Bld) [#/Vol] 1.8 103/ul Normal 1.2-3.8 [facility] Comment on above: Performed By: #### C BC #### [facility] [address] [place] [address] Claudia Lacey Lymphocytes/100 WBC (Bld) 23.6 % Normal 20.5-60.0 [facility] Comment on above: Performed By: #### C BC #### [facility] [address] [place], [place] [address] Claudia Lacey MANUAL DIFF REQ NO Normal [facility] Comment on above: Performed By: #### C BC #### [facility] [address] [place] [address] Claudia Lacey MCH (RBC) [Entitic mass] 31.4 pg Normal 25.9-34.0 [facility] Comment on above: Performed By: #### C BC #### [facility] [address] [place], [place] [address] Claudia Lacey MCHC (RBC) [Mass/Vol] 35.7 g/dL Critically high 29.9-35.2 [facility] Comment on above: Performed By: #### C BC #### [facility] [address] [place], [place] [address] Claudia Lacey MCV (RBC) [Entitic vol] 87.9 fL Normal 80.0-94.0 [facility] Comment on above: Performed By: #### C BC #### [facility] [address] [place], [place] [address] Claudia Lacey Monocytes (Bld) [#/Vol] 0.5 103/ul Normal 0.3-0.8 [facility] Comment on above: Performed By: #### C BC #### [facility] [address] [place], [place] [address] Claudia Lacey Monocytes/100 WBC (Bld) 6.2 % Normal 1.7-12.0 [facility] Comment on above: Performed By: #### C BC #### [facility] [address] [place], [place] [address] Claudiaalfredo Rahman Neutrophils (Bld) [#/Vol] 5.2 103/ul Normal 1.4-6.5 [facility] Comment on above: Performed By: #### C BC #### [facility] [address] [place], [place] [address] Claudiaalfredo Rahman Neutrophils/100 WBC (Bld) 66.7 % Normal 43.0-75.0 [facility] Comment on above: Performed By: #### C BC #### [facility] [address] [place], [place] [address] Claudiaalfredo Rahman Platelet mean volume (Bld) [Entitic vol] 9.0 fL Critically low 9.5-13.5 [facility] Comment on above: Performed By: #### C BC #### [facility] [address] [place], [place] [address] Claudiaalfredo Rahman Platelets (Bld) [#/Vol] 267 103/ul Normal 150-450 [facility] Comment on above: Performed By: #### C BC #### [facility] [address] [place], [place] [address] Claudia Rahman RBC (Bld) [#/Vol] 4.94 106/ul Normal 4.70-6.10 [facility] Comment on above: Performed By: #### C BC #### [facility] [address] [place], [place] [address] Claudiaalfredo Rahman WBC (Bld) [#/Vol] 7.8 103/ul Normal 4.0-11.0 [facility] Comment on above: Performed By: #### C BC #### [facility] [address] [place], [place] [address] Claudia Rahman PROF 14(COMP METB)on 019 Albumin [Mass/Vol] 3.8 g/dL Normal 3.5-5.0 [facility] Comment on above: Performed By: #### C MP #### [facility] [address] [id number] Claudia Lacey Albumin/Globulin [Mass ratio] 0.9 {ratio} Normal [facility] Comment on above: Performed By: #### C MP #### [facility] [address] [place], [place] [address] Claudia Lacey ALP [Catalytic activity/Vol] 83 U/L Normal 38-126 [facility] Comment on above: Performed By: #### C MP #### [facility] [address] [id number] Claudia Lacey ALT [Catalytic activity/Vol] 89 U/L Critically high 21-72 [facility] Comment on above: Performed By: #### C MP #### [facility] [address] [place], [place] [address] Claudia Lacey Anion gap [Moles/Vol] 9.1 mmol/L Normal [facility] Comment on above: Performed By: #### C MP #### [facility] [address] [place] [address] Claudia Lacey AST [Catalytic activity/Vol] 39 U/L Normal 17-59 [facility] Comment on above: Performed By: #### C MP #### [facility] [address] [place], [place] [address] Claudia Lacey Bilirubin Ql (U) 0.4 mg/dL Normal 0.2-1.3 [facility] Comment on above: Performed By: #### C MP #### [facility] [address] [place], [place] [address] Claudia Lacey Calcium [Mass/Vol] 9.4 mg/dL Normal 8.4-10.2 [facility] Comment on above: Performed By: #### C MP #### [facility] [address] [place], [place] [address] Claudia Lacey Chloride [Moles/Vol] 100 mmol/L Normal 98-107 [facility] Comment on above: Performed By: #### C MP #### [facility] [address] [id number] Claudia Lacey CO2 [Moles/Vol] 30.6 mmol/L Critically high 22.0-30.0 [facility] Comment on above: Performed By: #### C MP #### [facility] [address] [id number] Claudia Lacey Creatinine [Mass/Vol] 0.71 mg/dL Normal 0.66-1.25 [facility] Comment on above: Performed By: #### C MP #### [facility] [address] [id number] Claudia Lacey EGFR-AF WALLISIAN >60 Normal >=60 [facility] Comment on above: Performed By: #### C MP #### [facility] [address] [id number] Claudia Lacey EGFR-NON AF WALLISIAN >60 Normal >=60 [facility] Comment on above: Performed By: #### C MP #### [facility] [address] [place] [address] Claudia Lacey Globulin (S) [Mass/Vol] 4.4 g/dL Normal [facility] Comment on above: Performed By: #### C MP #### [facility] [address] [address] Claudia Lacey Glucose [Mass/Vol] 110 mg/dL Critically high 74-106 [facility] Comment on above: Performed By: #### C MP #### [facility] [address] [address] Claudia Lacey Potassium [Moles/Vol] 3.7 mmol/L Normal 3.4-5.0 [facility] Comment on above: Performed By: #### C MP #### [facility] [address] [id number] Claudia Lacey Protein [Mass/Vol] 8.2 g/dL Normal 6.1-8.2 [facility] Comment on above: Performed By: #### C MP #### [facility] [address] [id number] Claudia Lacey Sodium [Moles/Vol] 136 mmol/L Critically low 137-145 [facility] Comment on above: Performed By: #### C MP #### [facility] [address] [place] [address] Claudia Rahman Urea nitrogen [Mass/Vol] 5.0 mg/dL Critically low 9.0-20.0 [facility] Comment on above: Performed By: #### C MP #### [facility] [address] [place] [address] Claudia Rahman Urea nitrogen/Creatinine [Mass ratio] 7.0 mg/mg Normal [facility] Comment on above: Performed By: #### C MP #### [facility] [address] [place] [address] Claudia Rahman HEPATITIS C VIRUS QUANTITATI VE RNA (ABBOon 11-02-2018 HCV log 10 5.697 log10 IU/mL Normal [facility] Comment on above: Performed By: #### H CVQNT #### [facility] [address] [place] [address] Claudia Rahman Hepatitist C Quantitation [id number] IU/mL Normal [facility] Comment on above: Performed By: #### H CVQNT #### [facility] [address] [place] [address] Claudia Rahman Test information Comment Normal [facility] Comment on above: Result Comment: The quantifiable range of this assay is 12 to 100,000,000 IU/mL for genotypes 1-6 and the limit of detection of the assay is 12 IU/mL. Performed By: #### H CVQNT #### [facility] [address] [place] [address] Claudia Rahman LIPASEon 10-28-2018 Lipase [Catalytic activity/Vol] 156.0 U/L Normal 23.0-300.0 [facility] Comment on above: Performed By: #### L IPA, CMP #### [facility] [address] [place] [address] Claudia Rahman PROF 14(COMP METB)on 019 Albumin [Mass/Vol] 4.4 g/dL Normal 3.5-5.0 [facility] Comment on above: Performed By: #### L IPA, CMP #### [facility] [address] [place], [place] [address] Claudia Lacey Albumin/Globulin [Mass ratio] 1.1 {ratio} Normal [facility] Comment on above: Performed By: #### L IPA, CMP #### [facility] [address] [id number] Claudia Lacey ALP [Catalytic activity/Vol] 78 U/L Normal 38-126 [facility] Comment on above: Performed By: #### L IPA, CMP #### [facility] [address] [address] Claudia Lacey ALT [Catalytic activity/Vol] 158 U/L Critically high 21-72 [facility] Comment on above: Performed By: #### L IPA, CMP #### [facility] [address] [address] Claudia Lacey Anion gap [Moles/Vol] 12.7 mmol/L Normal [facility] Comment on above: Performed By: #### L IPA, CMP #### [facility] [address] [place] [address] Claudia Lacey AST [Catalytic activity/Vol] 62 U/L Critically high 17-59 [facility] Comment on above: Performed By: #### L IPA, CMP #### [facility] [address] [place] [address] Claudia Lacey Bilirubin Ql (U) 0.5 mg/dL Normal 0.2-1.3 [facility] Comment on above: Performed By: #### L IPA, CMP #### [facility] [address] [place], [place] [address] Claudia Lacey Calcium [Mass/Vol] 9.4 mg/dL Normal 8.4-10.2 [facility] Comment on above: Performed By: #### L IPA, CMP #### [facility] [address] [place], [place] [address] Claudia Lacey Chloride [Moles/Vol] 100 mmol/L Normal 98-107 [facility] Comment on above: Performed By: #### L IPA, CMP #### [facility] [address] [id number] Claudia Lacey CO2 [Moles/Vol] 27.5 mmol/L Normal 22.0-30.0 [facility] Comment on above: Performed By: #### L IPA, CMP #### [facility] [address] [phone] Claudia Lacey Creatinine [Mass/Vol] 0.88 mg/dL Normal 0.66-1.25 [facility] Comment on above: Performed By: #### L IPA, CMP #### [facility] [address] [id number] Claudia Lacey EGFR-AF WALLISIAN >60 Normal >=60 [facility] Comment on above: Performed By: #### L IPA, CMP #### [facility] [address] [id number] Claudia Lacey EGFR-NON AF WALLISIAN >60 Normal >=60 [facility] Comment on above: Performed By: #### L IPA, CMP #### [facility] [address] [place], [place] [address] Claudia Lacey Globulin (S) [Mass/Vol] 3.9 g/dL Normal [facility] Comment on above: Performed By: #### L IPA, CMP #### [facility] [address] [place], [place] [address] Claudia Lacey Glucose [Mass/Vol] 98 mg/dL Normal 74-106 [facility] Comment on above: Performed By: #### L IPA, CMP #### [facility] [address] [place] [address] Claudia Lacey Potassium [Moles/Vol] 4.2 mmol/L Normal 3.4-5.0 [facility] Comment on above: Performed By: #### L IPA, CMP #### [facility] [address] [place], [place] [address] Claudia Lacey Protein [Mass/Vol] 8.3 g/dL Critically high 6.1-8.2 [facility] Comment on above: Performed By: #### L IPA, CMP #### [facility] [address] [id number] Claudia Lacey Sodium [Moles/Vol] 136 mmol/L Critically low 137-145 [facility] Comment on above: Performed By: #### L IPA, CMP #### [facility] [address], [place] [address] Claudia Rahman Urea nitrogen [Mass/Vol] 15.0 mg/dL Normal 9.0-20.0 [facility] Comment on above: Performed By: #### L IPA, CMP #### [facility] [address] [place], [place] [address] Claudia Rahman Urea nitrogen/Creatinine [Mass ratio] 17.0 mg/mg Normal [facility] Comment on above: Performed By: #### L IPA, CMP #### [facility] [address], [place] [address] Claudia Rahman Hepatitis Acute Panelon 08-09 HBsAg Screen Negative Normal Negative [facility] Comment on above: Order Comment: Reaso n for Exam Liver enzyme elevation Performed By: #### H EPACUTE #### [facility] , Hepatitis A Antibody IgM Negative Normal Negative [facility] Comment on above: Order Comment: Reaso n for Exam Liver enzyme elevation Performed By: #### H EPACUTE #### [facility] , Hepatitis B Core Antibody IgM Negative Normal Negative [facility] Comment on above: Order Comment: Reaso n for Exam Liver enzyme elevation Performed By: #### H EPACUTE #### [facility] , Hepatitis C Virus Antibody >11.0 High 0.0-0.9 [facility] Comment on above: Order Comment: Reaso n for Exam Liver enzyme elevation Result Comment: Nega tive: < 0.8 Indeterminate: 0.8 - 0.9 Positive: > 0.9 The CDC recommends that a positive HCV antibody result be followed up with a HCV Nucleic Acid Amplification test (088107). Performed at: [facility] [employer] [id number] [employer]: Jim Aguilar PhD, Phone: [phone] PERFORMED BY: 36 [place] [address] PATHOLOGIST TUNNEL KILN OPERATOR LUPIS EDMOND M.D. Performed By: #### H EPACUTE #### [facility] , Encounters Encounter Date Encounter Type Care Provider Facility Start: 09-03-2019 End: 09-03-2019 Patient encounter procedure MANISH MORILLO Facility:[facility] Start: 08-02-2019 End: 08-02-2019 Patient encounter procedure MANISH MORILLO Facility:[facility] Start: 07-31-2019 End: 08-01-2019 Patient encounter procedure MANISH MORILLO Facility:[facility] Start: 12-01-2018 Encounter for genera l adult medical examination without abnormal findings MANISH MORILLO [facility] Start: 11-27-2018 End: 11-28-2018 Patient encounter procedure MANISH MORILLO Facility:[facility] Start: 11-15-2018 End: 11-15-2018 Patient encounter procedure CASSIE POLLOCK Facility:[facility] Start: 11-12-2018 End: 11-12-2018 Patient encounter procedure NONE LISTED REQUEST Facility:[facility] Start: 10-28-2018 End: 10-29-2018 Patient encounter procedure MANISH MORILLO Facility:[facility] Encounter for genera l adult medical examination without abnormal findings MANISH MORILLO [facility] Payers Date Payer Category Payer Unknown [id number] 2.16.84 [id number] 1985 Unknown [id number] 2.16.84 [id number] 1985 Unknown [id number] 2.16.84 [id number] 1985 Unknown [id number] 2.16.84 [id number] 1985 Unknown [id number] 2.16.84 [id number] 1985 Unknown [id number] 2.16.84 [id number] 1985 Unknown [id number] 2.16.84 [id number] 1959 Unknown [id number] Summary Purpose Family History No Family History Records FoundNo Family History Records Found Advance Directives No Advanced Directives Records FoundNo Advanced Directives Records Found Additional Source Comments (unrecognized sect ion and content) No Status Records FoundNo Status Records Found INFORMATION SOURCE (unrecogn ized section and content) DATE CREATED AUTHOR 05/05/2019 [facility] DATE CREATED AUTHOR AUTHOR'S ERNESTO DAVID 09/07/2019 [facility] FOR RECORDS PERTAINING TO PATIENTS WHO ARE OR HAVE BEEN ENROLLED IN A CHEMICAL DEPENDENCY/SUBSTANCEABUSE PROGRAM, SOME INFORMATION MAY BE OMITTED. This clinical summary was aggregated from multiple sources. Caution should be exercised in using it in the provision of clinical care. This summary normalizes information from multiple sources, and as a consequence, information in this document may materially change the coding, format and clinical context of patient data. In addition, data may be omitted in some cases. CLINICAL DECISIONS SHOULD BE BASED ON THE PRIMARY CLINICAL RECORDS. [facility] [employer] provides no warranty or guarantee of the accuracy or completeness of information in this document.
[2023-07-15 15:45] LABS: Basophils Absolute Auto 0.1 10^3/uL (0.0-0.1); Basophils Percent Auto 0.6 % (0.2-2.0); Eosinophils Absolute Auto 0.1 10^3/uL (0.0-0.7); Eosinophils Percent Auto 1.2 % (0.9-7.0); Hematocrit 39.5 % (42.0-54.0); Immature Granulocytes Abs Auto 0.01 10^3/uL (0.00-0.03); Immature Granulocytes Pct Auto 0.1 % (0.0-0.5); Lymphocytes Absolute Auto 2.8 10^3/uL (1.2-3.8); Lymphocytes Percent Auto 33.4 % (20.5-60.0); Mean Corpuscular HGB Conc 35.4 g/dL (29.9-35.2); Mean Corpuscular Hemoglobin 30.8 pg (25.9-34.0); Mean Platelet Volume 9.4 fL (9.5-13.5); Monocytes Absolute Auto 0.6 10^3/uL (0.3-0.8); Monocytes Percent Auto 7.4 % (1.7-12.0); Neutrophils Absolute Auto 4.7 10^3/uL (1.4-6.5); Neutrophils Percent Auto 57.3 % (43.0-75.0); Platelet Count 262 10^3/uL (150-450); Red Blood Count 4.54 10^6/uL (4.70-6.10); Red Cell Distribution Width 12.1 % (11.0-15.0); White Blood Count 8.3 10^3/uL (4.0-11.0)
[2023-07-15 15:51] LABS: Bilirubin Urine NEGATIVE (NEGATIVE); Blood Urine NEGATIVE (NEGATIVE); Clarity Urine CLEAR (CLEAR); Color Urine LT. YELLOW (YELLOW); Glucose Urine UA NEGATIVE (NEGATIVE); Ketones Urine NEGATIVE (NEGATIVE); Leukocyte Esterase Urine NEGATIVE (NEGATIVE); Nitrite Urine NEGATIVE (NEGATIVE); Protein Urine NEGATIVE (NEG/TRACE); Specific Gravity Urine <=1.005 (1.005-1.025); Urobilinogen Urine 0.2 EU/dL (0.2-1.0); pH Urine 6.5 (5.0-9.0)
[2023-07-15 15:54] LABS: Alanine Aminotransferase 97 U/L (16-63); Albumin Level 3.9 g/dL (3.4-5.0); Alkaline Phosphatase 75 U/L (46-116); Amylase 48 U/L (25-115); Anion Gap 9.7; Aspartate Amino Transferase 148 U/L (15-37); BUN Creatinine Ratio 14.6; Bilirubin Direct 0.2 mg/dL (0.0-0.2); Bilirubin Total 0.6 mg/dL (0.2-1.0); Calcium 8.7 mg/dL (8.5-10.1); Carbon Dioxide 27.9 mmol/L (21.0-32.0); Chloride 103 mmol/L (98-107); Estimated GFR (African America >60 (>=60); Estimated GFR (Non-African Ame >60 (>=60); Globulin 3.8 g/dL; Glucose 117 mg/dL (74-106); Potassium 3.6 mmol/L (3.5-5.1); Sodium 137 mmol/L (136-145); Total Protein 7.7 g/dL (6.4-8.2)
[2023-07-15 16:17] LABS: Bacteria Urine NONE SEEN #/HPF (NONE SEEN); Cast Seen? NONE SEEN #/LPF (NONE SEEN); Crystals Seen? None Seen #/HPF (None Seen); Mucus Urine NONE SEEN (NONE SEEN); RBC Urine 0-2 #/HPF (0-2); Squamous Epithelial Cell Urine NONE SEEN #/LPF (NONE/RARE); WBC Urine NONE SEEN #/HPF (NONE SEEN)
== END 2023-07-15 16:35 | disposition home or self-care (01) ==
PROVIDERS: Emergency Provider Emergency Medicine
DX: R10.9 Unspecified abdominal pain (principal); F17.210 Nicotine dependence, cigarettes, uncomplicated
CPT/HCPCS: 36415; 74176; 80048; 80076; 81001; 82150; 83690; 85025; 99285

== ENCOUNTER 2025-03-08 21:43 | Emergency (ER) | payer OTHER, SELFPAY ==
[2025-03-08 21:54] VITALS: BP 136/74; PULSE 84; TEMP 36.5; O2SAT 96; BMI 21.0
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
[2025-03-08 22:36] LABS: Hematocrit 37.9 % (42.0-54.0); Hemoglobin 14.2 g/dL (14.0-18.0); Immature Granulocytes Abs Auto 0.03 10^3/uL (0.00-0.03); Immature Granulocytes Pct Auto 0.2 % (0.0-0.5); Lymphocytes Absolute Auto 1.5 10^3/uL (1.2-3.8); Mean Corpuscular HGB Conc 37.5 g/dL (29.9-35.2); Mean Corpuscular Hemoglobin 31.4 pg (25.9-34.0); Mean Corpuscular Volume 83.8 fL (80.0-94.0); Platelet Count 226 10^3/uL (150-450); Red Blood Count 4.52 10^6/uL (4.70-6.10); White Blood Count 12.5 10^3/uL (4.0-11.0)
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
[2025-03-08 22:52] LABS: Alanine Aminotransferase 83 U/L (16-63); Albumin Globulin Ratio 1.0; Albumin Level 4.3 g/dL (3.4-5.0); Alkaline Phosphatase 65 U/L (46-116); Anion Gap 13.8; Aspartate Amino Transferase 109 U/L (15-37); Blood Urea Nitrogen 22.0 mg/dL (7.0-18.0); Calcium 9.3 mg/dL (8.5-10.1); Carbon Dioxide 27.7 mmol/L (21.0-32.0); Chloride 97 mmol/L (98-107); Estimated GFR (African America >60 (>=60 mL/min/1.73m^2); Estimated GFR (Non-African Ame >60 (>=60 mL/min/1.73m^2); Globulin 4.3 g/dL; Glucose 109 mg/dL (74-106); Potassium 3.5 mmol/L (3.5-5.1); Sodium 135 mmol/L (136-145); Total Protein 8.6 g/dL (6.4-8.2)
[2025-03-08 23:35] VITALS: BP 120/66; PULSE 97; O2SAT 100
[2025-03-08] MEDS: 0.9 % SODIUM CHLORIDE 1,000 ML 1000 ML IV (23:36)
[2025-03-08] MEDS: CEFAZOLIN SODIUM/DEXTROSE,ISO 1 GM/50 ML PREMIX IV (23:37)
[2025-03-08] MEDS: DIPHTH,PERTUSS(ACELL),TET VAC 0.5 ML SYRINGE IM (23:37)
[2025-03-09 00:41] VITALS: BP 120/83; PULSE 104; O2SAT 100
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
[2025-03-09 01:07] LABS: Glucose Urine UA NEGATIVE (NEGATIVE)
[2025-03-09 01:15] LABS: Crystals Seen? None Seen #/HPF (None Seen)
[2025-03-09 01:16] LABS: Cast Seen? NONE SEEN #/LPF (NONE SEEN); Urine Culture Indicated NO
[2025-03-09] MEDS: 0.9 % SODIUM CHLORIDE 1,000 ML 150 ML IV (01:23)
[2025-03-09 01:26] LABS: Creatine Kinase 2965 U/L (39-308)
[2025-03-09 01:31] VITALS: BP 130/84; PULSE 93; O2SAT 99
[2025-03-09 02:01] VITALS: BP 124/91; PULSE 92; TEMP 37; O2SAT 97
[2025-03-09 02:32] VITALS: BP 129/93; PULSE 92; TEMP 37; O2SAT 100
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
== END 2025-03-09 02:48 | disposition short-term general hospital (02) ==
PROVIDERS: Emergency Provider Emergency Medicine
DX: S00.03XA Contusion of scalp, initial encounter (principal); S41.102A Unspecified open wound of left upper arm, initial encounter; S31.829A Unspecified open wound of left buttock, initial encounter; S31.819A Unspecified open wound of right buttock, initial encounter; S81.802A Unspecified open wound, left lower leg, initial encounter; V19.49XA Pedal cycle driver injured in collision with other motor vehicles in traffic accident, initial encounter; Y93.55 Activity, bike riding; S32.059A Unspecified fracture of fifth lumbar vertebra, initial encounter for closed fracture; S32.029A Unspecified fracture of second lumbar vertebra, initial encounter for closed fracture; S36.039A Unspecified laceration of spleen, initial encounter; S36.113A Laceration of liver, unspecified degree, initial encounter; S37.032A Laceration of left kidney, unspecified degree, initial encounter; T79.6XXA Traumatic ischemia of muscle, initial encounter
CPT/HCPCS: 36415; 70450; 71260; 72125; 73502; 74177; 76376; 80053; 81001; 82550; 85025; 90471; 90715; 96361; 96365; 99285; J0690; Q9967